=== PATIENT | male | born 1970 | race Caucasian/White ===

== ENCOUNTER 2023-01-10 08:57 | Emergency (ER) | payer OTHER, SELFPAY ==
[2023-01-10 09:04] VITALS: BP 167/114; PULSE 84; RESP 22; TEMP 36.4; O2SAT 97; BMI 32.4
--- NOTE | 2023-01-10 09:15 | PC.NURSE ---
pt is alert and oriented, skin pwd, respirations even and unlabored, ls clear, airway patent and speaking in full sentences, lower lip swollen since about [id number] not sure what caused it only had a small handful of Fritos, pt does not take lisnopril, states lip feels numb and burning, ns on the monitor
[2023-01-10] MEDS: methylPREDNISolone Sod Succ 125 MG/2 ML VIAL IVPUSH (09:31)
[2023-01-10] MEDS: Famotidine/PF 20 MG/2 ML VIAL IVPUSH (09:31)
[2023-01-10] MEDS: diphenhydrAMINE HCL 50 MG/ML VIAL IVPUSH (09:31)
--- NOTE | 2023-01-10 09:31 | ED_ITS ---
HPI - Allergic Reaction General Chief complaint: Allergic Reaction Stated complaint: numb face, possible allergic reaction Time Seen by Provider: 01/10/23 09:06 Source: patient Mode of arrival: ambulatory Limitations: no limitations History of Present Illness HPI narrative: 52 yo male with history of HTN, gout, currently being worked up for elevated eosinophils who presents to the ER for evaluation of acute onset of lower lip swelling and numbness that started 45 minutes prior to arrival. He states he woke up in his usual state of health. He had some Fritos for breakfast. Shortly after he developed swelling and numb sensation of the lower lip. He came right to the ER for evaluation. No history of similar episodes. No known allergies. He is not on lisinopril and does not take aspirin. He denies any tongue swelling, sensation of throat closing, upper lip swelling, wheezing or SOB. MD complaint: allergic reaction and facial swelling Onset (ago): minute(s) (45) Exposure: unknown Symptoms: lip swelling Severity: moderate Treatment prior to arrival: none Previous Allergic Reaction History: none Related Data Previous Rx's Medication Instructions Recorded diphenhydramine HCl 25 mg capsule 50 mg (2 x 25 mg) PO Q6H PRN 01/10/23 (Benadryl) allergic reaction #20 caps famotidine 40 mg tablet (Pepcid) 40 mg PO DAILY #7 tabs 01/10/23 prednisone 50 mg tablet 50 mg PO DAILY #3 tabs 01/10/23 Allergies Allergy/AdvReac Type Severity Reaction Status Date / Time No Known Allergies Allergy Verified 01/10/23 09:07 Review of Systems Review of Systems: Yes all other systems are reviewed and are negative [facility] Social History Social History Alcohol intake: current Alcohol intake frequency: a few times a week Smoked in Last 30 Days: No Use of substances other than those prescribed or required for medical reasons: No Advance Directives: No Physical Exam ED Vital Signs: Vital Signs - 24 hr 01/10/23 09:04 01/10/23 09:34 01/10/23 10:57 Temperature 97.6 F 97.7 F Pulse Rate 84 80 82 Respiratory Rate 22 H 20 20 Blood Pressure 167/114 H 147/93 H 147/97 H Pulse Oximetry 97 95 99 Oxygen Delivery Method Room Air Room Air Room Air BMI result Body Mass Index 32.4 Appearance: Alert. Oriented X3. Anxious Head: normocephalic, atraumatic. Eyes: Pupils equal, round and reactive to light. ENT: Lower lip with moderate generalized swelling, upper lip is normal. Pharynx normal, airway patent. No tonsillar swelling or exudate. Normal voice. No tongue swelling Neck: Normal inspection. Neck supple. No anterior neck swelling CVS: Normal heart rate and rhythm. Pulses normal. Respiratory: No respiratory distress. Breath sounds normal. Abdomen: Soft and nontender. +BS x4 Skin: Skin warm and dry. Normal skin color. Normal skin turgor. No rashes. Extremities: No lower extremity edema. No joint swelling. Neuro/psych: Oriented X 3. No motor deficit. No sensory deficit. CN II-XII intact. Normal speech and cognition. Course Reevaluation(s) Reevaluation #1: slight improvement in lower lip swelling, continues to report some tingling. airway patent. no difficulty swallowing or tongue swelling. got meds 45 mins ago. will continue to monitor and reassess Time: 10:30 Reevaluation #2: upon re-evaluation there is significant improvement in his lip swelling, near baseline. patient feels much better. unclear etiology of reaction. encouraged to f/u with vendor specialist and PCP strict return precautions discussed. stable for d/c home Time: 12:30 Medications Administered Discontinued Medications Generic Name Dose Route Start Last Admin Trade Name Jean Marieq PRN Reason Stop Dose Admin Diphenhydramine HCl 50 mg 01/10/23 09:18 01/10/23 09:31 Diphenhydramine Hcl 50 Mg/Ml Vial IVPUSH 01/10/23 09:19 50 mg ONCE ONE Administration Famotidine 20 mg 01/10/23 09:18 01/10/23 09:31 Famotidine/Pf 20 Mg/2 Ml Vial IVPUSH 01/10/23 09:19 20 mg ONCE ONE Administration Methylprednisolone Sodium Succinate 125 mg 01/10/23 09:18 01/10/23 09:31 Methylprednisolone Sod Succ 125 Mg/2 Ml Vial IVPUSH 01/10/23 09:19 125 mg ONCE ONE Administration Medical Decision Making Medical Decision Making MDM Narrative: 52 yo male with history of HTN (not on meds) and gout who presents with acute onset of isolated lower lip swelling that started this morning. No history of similar presentations. No airway involvement. IV established and IV medrol, pepcid and benadryl given. patient monitored closed in the ER for 3.5 hours. After several re-evaluations patient is almost back to baseline and feels much better after getting IV meds. At this time comfortable w/ discharge with close outpatient follow up and strict return precautions. Differential Diagnosis Differential Diagnoses: The differential diagnosis associated with the presentation includes angioedema, acute allergic reaction, trauma, insect bite Admission/Observation Consideration of admission/observation: Escalation of care including admission/observation considered Prescription Management I considered prescription management with: Other (benadryl, pepcid, prednisone) Chronic Conditions Patient?s care impacted by: Hypertension Critical Care Time Critical Care Time Critical Care Time: Yes Total Critical Care Time: 41 Attestation: I have personally provided critical care time exclusive of time spent on separately billable procedures. Time includes review of chart, frequent bedside reassessments of cardiopulmonary status, and monitoring for potential decompensation. Intervention performed as documented. Discharge Plan Discharge Clinical Impression: Angioedema Qualifiers: Encounter type: initial encounter Qualified Code(s): T78.3XXA - Angioneurotic edema, initial encounter Patient Disposition: Home, Self-Care Instructions: Angioedema (ED) Additional Instructions: recommend taking another dose of benadryl later this afternoon and then again before bed start the prednisone and pepcid tomorrow and take as directed If you develop new or worsening symptoms call 911 or come back to the ER for further evaluation. recommend following up with an insurance claim auditor w[facility] at [address] [place] [address] Prescriptions: New diphenhydramine HCl [Benadryl] 25 mg capsule 50 mg PO Q6H PRN (Reason: allergic reaction) Qty: 20 0RF prednisone 50 mg tablet 50 mg PO DAILY Qty: 3 0RF famotidine [Pepcid] 40 mg tablet 40 mg PO DAILY Qty: 7 0RF
[2023-01-10 09:34] VITALS: BP 147/93; PULSE 80; RESP 20; O2SAT 95
--- NOTE | 2023-01-10 10:56 | PC.NURSE ---
pt's lower lip swelling appears to be improving
[2023-01-10 10:57] VITALS: BP 147/97; PULSE 82; RESP 20; TEMP 36.5; O2SAT 99
== END 2023-01-10 13:05 | disposition home or self-care (01) ==
PROVIDERS: Emergency Provider Emergency Medicine; PCP Nurse Practitioner Family
DX: T78.3XXA Angioneurotic edema, initial encounter (principal); X58.XXXA Exposure to other specified factors, initial encounter; I10 Essential (primary) hypertension
CPT/HCPCS: 96374; 96375; 99284; J1200; J2930

== ENCOUNTER 2023-05-21 11:47 | Outpatient (AMB) | payer OTHER, SELFPAY ==
[2023-05-21 11:54] VITALS: BP 120/80; PULSE 96; TEMP 36.2; O2SAT 96; BMI 31.9
--- NOTE | 2023-05-21 11:54 | AM.OFFWIN_ITS ---
Intake Vital Signs 05/21/23 11:54 Height 5 ft 10 in Weight 222 lb BMI 31.9 BP 120/80 Blood Pressure Location Lt brachial Position Sitting Pulse 96 Pulse Source Pulse Oximeter Temp 97.1 F Temp Source Temporal Artery Scan Pulse Oximetry (%) 96 Oxygen Delivery Method Room Air Intake Visit Reasons: EP Lf eye irr,ringing ear, throat [phone] Intake Note: pt is here today for lft eye ear ringing throat started saturday Patient Tobacco Use Status: Never used Tobacco Allergies No Known Allergies Allergy (Verified 05/21/23 11:56) Medication List - Last Reconciled 05/21/23 by OMAR Price sulfacetamide sodium 10% 2 drps ophthalmic (eye) Q4H 5 days Do you need a note to return to daycare/school/sports/work: No HPI HPI Comments History of Present Illness Details 53-year-old male presents today complain ing of fever nasal congestion mild cough x3 days. Said fever was over 101 degrees at home PFSH Social History Alcohol intake: current Alcohol intake frequency: a few times a week Patient Tobacco Use Status: Never used Tobacco Review of Systems Const Reports body aches, Reports chills, Reports fatigue, Reports fever(s), Reports headache(s) and Reports weakness ENT Reports headache(s), Reports hearing loss, Reports nasal congestion, Reports nasal discharge, Reports sinus pain, Reports sinus pressure and Reports sore throat Resp Reports chest congestion and Reports cough Musc Reports myalgias Neuro Reports headache(s) and Reports weakness Endo Reports fatigue Physical Exam Vital Signs: Last Vital Signs Temp 97.1 F 05/21/23 11:54 Pulse 96 05/21/23 11:54 BP 120/80 05/21/23 11:54 Pulse Ox 96 05/21/23 11:54 Oxygen Delivery Method Room Air 05/21/23 11:54 BMI result Body Mass Index 31.9 HEENT Head: Yes normal to inspection, Yes normocephalic and Yes atraumatic Ears: hearing grossly normal bilaterally, external ears normal and TM's normal bilaterally General nose exam: Normal external nose present Face and sinus: Yes normal facial exam Mouth: Normal oral and palatal mucosa present Teeth and gingiva: dentition normal Throat: Yes posterior oropharynx normal Eyes Conjunctivae: conjunctival abnormal left conjunctival injection and discharge Resp Effort & Inspection: normal respiratory effort Auscultation: clear to auscultation bilaterally Cardio Rate: regular rate Rhythm: regular rhythm Heart sounds: S1 normal heart sound present and S2 normal heart sound present Results AMB Rapid Strep AMB Rapid Strep Negative Last Edit by Almas Kamara CMA on 05/21/23 12 :18 Assessment & Plan Assessment & Plan (1) Upper respiratory infection: Code(s): J06.9 - Acute upper respiratory infection, unspecified (2) Conjunctivitis: Code(s): H10.9 - Unspecified conjunctivitis Plan: The patient will use sulfacetamide drops for conjunctivitis on the left, I will await the results of COVID flu test tomorrow. 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 Follow-up with PCP Plan See plan Orders: Orders 2 AMB Rapid Strep Screen Today Z13.9 - Encounter for screening, unspecified SARS-CoV2/FLU/RSV Today J06.9 - Acute upper respiratory infection, unspecified Medications: New sulfacetamide sodium 10% 2 drps ophthalmic (eye) Q4H 5 days 15 mL 0RF Coding Level of Care Code Est Pt Level 3 (52149) Diagnoses Upper respiratory infection J06.9 Conjunctivitis H10.9 Time Spent (min) 20
== END 2023-05-21 12:31 | disposition home or self-care (01) ==
PROVIDERS: PCP Nurse Practitioner Family; Visit Provider Physician Assistant Medical
DX: J06.9 Acute upper respiratory infection, unspecified (principal); H10.9 Unspecified conjunctivitis
CPT/HCPCS: 87880; 99213

== ENCOUNTER 2023-05-21 16:48 | Outpatient (REF) | payer OTHER, SELFPAY ==
[2023-05-21 18:12] LABS: Influenza A PCR NEGATIVE (Negative); Influenza B PCR NEGATIVE (Negative); Resp Syncy Virus RNA Qual PCR NEGATIVE (Negative); SARS COV2 PCR INHOUSE POSITIVE (Negative)
== END 2023-05-21 16:49 | disposition home or self-care (01) ==
LOC: HO.LNP 16:48
PROVIDERS: Visit Provider Physician Assistant Medical
DX: Z11.52 Encounter for screening for COVID-19 (principal); Z20.822 Contact with and (suspected) exposure to COVID-19; J06.9 Acute upper respiratory infection, unspecified
CPT/HCPCS: 0241U

== ENCOUNTER 2024-04-14 02:52 | Emergency (ER) | payer OTHER, SELFPAY ==
--- NOTE | ~2024-04-14 | XR_ITS ---
CLINICAL HISTORY: cough 2 view chest x-ray. Comparison: CR - RIBS LEFT PA CHEST [id number] - 03/04/19 16:05 EST Findings: The lungs are adequately expanded. No focal consolidation. No effusion or pneumothorax. Cardiac and mediastinal contours are within normal limits. No acute osseous abnormality Impression: No acute process. This document has been electronically signed by: John Howell MD on 04/14/2024 07:55:32
--- OUTSIDE RECORDS SUMMARY | 2024-04-14 02:55 | XMS_ITS ---
[facility] Organization [facility] Address [address] [place] [address] Care Team Providers Care Breastfeeding Program Coordinator Name Role Phone Naida Lilly Primary Care Provider Unavaila nahomy Gaytan Venus Unavailable [phone] Huang Shore Unavailable [phone] Allergies No Known Allergies REASON FOR VISIT Foot pain Medications Medication SIG (Take, Route, Frequency, Duration) Notes Start Date End Date Status Allopurinol 100 MG 1 tablet Orally Once a day for 30 day(s) Active Acetaminophen 500 MG TAKE ONE TABLET BY MOUTH THREE TIMES A DAY Oral for 30 Not-Taking Cephalexin 500 MG 1 capsule Orally brenda ry 6 hrs for 5 day(s) Not-Taking Atorvastatin Calcium 20 MG 1 tablet Oral ly Once a day for 30 day(s) Not-Taking Social History Tobacco Use: Social History Observation Description Date Details (start date - stop date) Never Smoker NA - NA Tobacco Use/Smoking Question Answer Notes Are you a: nonsmoker Additional Findings: Tobacco Non-User Current no n-smoker Alcohol Screen Question Answer Notes Did you have a drink contain ing alcohol in the past year? Yes How often did you have a dri nk containing alcohol in the past year? 2 to 3 times a week (3 points) Points 3 Interpretation Negative Tobacco use other than smoking: Question Answer Notes Are you an other tobacco user? No Vital Signs Height 5ft 10in in 12/24/2023 Weight 212 lbs 12/24/2023 BMI 30.42 kg/m2 12/24/2023 Encounters Encounter Location Date Provider Diagnosis [facility] [address] [place] [id number] 12/24/2023 Huang Shore Achilles tendinitis of right lower extremity M76.61 ; Sprain of deltoid ligament of right ankle, initial encounter S93.421A and Partial tear of right Achilles tendon, initial encounter S86.011A Assessments Encounter Date Diagnosis (ICD Code) Assessment Notes Treatment Notes Treatment Clinical Notes Section Notes 12/24/2023 Achilles tendinitis of right lower extremity (ICD-10 - M76.61) 12/24/2023 Sprain of deltoid ligament of right ankle, initial encounter (ICD-10 - S93.421A) 12/24/2023 Partial tear of right Achilles tendon, initial encounter (ICD-10 - S86.011A) Plan Of Treatment Pending Test Test Name Order Date X ray : Foot, right 3V 12/24/2023 Next Appt Details Follow Up: prn, Reason: Progress Notes * Kranthi KRAMERDOB:[birth year] (53 yo M)Acc No.[id number]:12/24/2023 Progress Note Patient:?Kranthi Kramer Provider:?Huang Shore DPM :1970???Age:53 Y???Sex:Male Andrzej e:12/24/2023 Address:[address] [place] [address] Pcp:Naida Lilly Subjective: * Chief Complaints: * ???Foot pain * HPI: ???Foot Pain:?Nature:?sharp, swelling, tenderness.?Location?Right achilles.?Duration:?several months.?Onset/Cause:?pt stepped in whole.?Course:?worse.?Aggrevated:?any pressure, standing, walking.?Treatments:?rest, ice.?Quality/Severity?severe--pt is concerned he may have torn his achilles; he relates sx repair of left achilles [address] So.? * ROS:?General/Constitutional:?Nausea?denies, denies.?Vomiting?denies, denies.?Hunger Thirst?denies, denies.?Loss appetite?denies, denies.?Chills?denies, denies.?Fatigue?denies, denies.?Fever?denies, denies.?Night Sweats denies, denies.?Unexplained weight loss?denies, denies.?Unexplained weight gain?denies.?Ophthalmologic:?Blurred vision?denies.?Red eye?denies.?HEENTM:?Dentures?denies, denies.?Dizziness?denies, denies.?Glasses/contacts?denies, denies.?Retinopathy?denies, denies.?Blurred/double vision?denies, denies.?TMJ?denies, denies.?Discharge/drainage?denies, denies.?Implants?denies, denies.?Sore throat?denies.?Dental implants?denies.?Hard of hearing ?denies, denies.?Difficulty chewing/swallowing/speaking?denies, denies.?Nose bleeds?denies, denies.?Sore mouth?denies, denies.?Swollen glands?denies.?Respiratory:?On Oxygen?denies, denies.?Pneumonia/pleurisy?denies, denies.?Bronchitis?denies, denies.?Emphysema?denies, denies.?Coughing?denies, denies.?Cough blood?denies, denies.?Shortness of breath?denies, denies.?Wheezing?denies, denies.?Cardiovascular:?Pacemaker?denies, denies.?MVP?denies, denies.?WPW?denies, denies.?CHF?denies, denies.?Heart attack?denies, denies.?Septal defect?denies, denies.?Rapid beat?denies, denies.?Chest pain ?denies, denies.?Atrial Fib.?denies, denies.?Murmur/Palpitations?denies, denies.?Gastrointestinal:?Hemorrhoids?denies, denies.?Stomach/Abdominal pain?denies, denies.?Dark blood stool?denies, denies.?Irritable bowel ?denies, denies.?Constipation?denies, denies.?Diarrhea?denies, denies.?Vomiting?denies.?Hematology:?Swelling?denies, denies.?Clots?denies.?Varicose Veins?denies.?Bruising?denies, denies.?Bleeding problem?denies, denies.?Genitourinary:?Blood urine?denies, denies.?Frequent/Painfu/urination/bladder control?denies, denies.?Kidney stones?denies, denies.?Infection (UTI)?denies, denies.?Nephropathy?denies, denies.?sex trans dis (STD)?denies.?Prostate?denies.?Musculoskeletal:?Hammertoes?denies, denies.?Bunions?denies, denies.?Scoliosis/kyphosis?denies.?Back Pain?denies.?Muscle Cramps/ Resting?denies.?Muscle cramps / walking?denies, denies.?Generalized aches and pains?denies, denies.?Weakness?denies, denies.?Integ.:?Greene?denies, denies.?Scars?denies, denies.?Corns/calluses?denies, denies.?Ingrown nails?admits, denies.?Painful nails?denies, denies.?Open Sores?denies.?Rashes?denies, denies.?Neurologic:?Difficulty sleeping?denies, denies.?Bipolar?denies.?Brain disorder?denies, denies.?Numbness?denies.?Balance trouble?denies, denies.?Confusion?denies, denies.?Fainting/blackouts?denies, denies.?Headache?denies.?Tingling?denies.?Tremors?denies, denies.? * Medical History:? * Surgical History:?achilles t endon repair 05/2000back surgery- L2-L3 & L4- L5 03/30/2011 -S1 nee arthroscopy 08/1985hernia drenal gland 2014rotator cuff tear repair 05/2023knee surgery 03/2023 * Hospitalization/Major Diagno stic Procedure:?No Hospitalization History. * Family History:?Mother: dece ased, Cancer, diagnosed with Unspecified essential hypertension, Other malignant neoplasm of unspecified site.?Father: , cancer, diagnosed with Other malignant neoplasm of unspecified site.? * Social History:?Tobacco Use:?Tobacco Use/Smoking?Are you a:?nonsmoker ?Additional Findings: Tobacco Non-User?Current non-smoker ?Tobacco use other than smoking?Are you an other tobacco user??No ???Drugs/Alcohol:?Drugs?Have you used drugs other than those for medical reasons in the past 12 months??Yes ?Alcohol Screen?Did you have a drink containing alcohol in the past year??Yes ?How often did you have a drink containing alcohol in the past year??2 to 3 times a week (3 points) ?Points?3 ?Interpretation?Negative ???Miscellaneous:?Caffeine: yes, 1-2 cups per day. ?Exercise: yes, golf. ?Marital status: . ?Occupation: nPicker. * Medications:?TakingAllopurin ol 100 MG Tablet 1 tablet Orally Once a dayTaking Allopurinol 100 MG Tablet 1 tablet Orally Once a dayNot-Taking/PRNAcetaminophen 500 MG Tablet TAKE ONE TABLET BY MOUTH THREE TIMES A DAY Oral Atorvastatin Calcium 20 MG Tablet 1 tablet Orally Once a dayCephalexin 500 MG Capsule 1 capsule Orally every 6 hrsMedication List reviewed and reconciled with the patientNot-Taking/PRN Acetaminophen 500 MG Tablet TAKE ONE TABLET BY MOUTH THREE TIMES A DAY Oral Not-Taking/PRN Atorvastatin Calcium 20 MG Tablet 1 tablet Orally Once a dayNot-Taking/PRN Cephalexin 500 MG Capsule 1 capsule Orally every 6 hrsMedication List reviewed and reconciled with the patient * Allergies:?N.K.D.A.yes[Aller gies Verified] Objective: * Vitals:?Ht: 5ft 10in, Wt:212 , BMI:30.42, Shoe size: 12, Ht-cm: 177.8 cm, Wt-k.16 kg. * Examination: ???General Examination: ?GENERAL APPEARANCE:?pleasant, alert, well nourished, well developed, well hydrated, with good attention to hygene/body habitus, and in no acute distress.?ORIENTED:?person,place, and time.?Neurological: ?SENSORY:?Neurological exam is normal, pain sensation normal, vibration sensation intact, pinprick sensation is normal in the lower extremities, denies, tingling, burning, anesthesia, paresthesia, hyperesthesia, B/L, Neurological exam demonstrates pop right achilles tendon and pain on df right foot thru achilles with fbirous swelling enlargement nilam achilles tendons.?TINEL'S COMPRESSION:?Negative tarsal tunnel, cleveland pedis, and medial calcaneal nerves B/L.?BABINSKI REFLEX:?absent.?Neuroma Pain: ?PALPATION:?No interspace pain noted on palpation.?Vascular: ?DP PULSES(B):?2/4, B/L.?PT PULSES(B):?2/4, B/L.?CAPILLARY FILL TIME:?3 secs. per digit, B/L.?TROPHIC CONDITION-TEXTURE/ELASTICITY/TURGOR/HAIR GROWTH(B):?normal, B/L.?TEMPERTURE GRADIENT(C):?warm to cool, proximal to distal, B/L.?PIGMENTATION:?normal, B/L.?EDEMA(C):? 1/4, Right lower leg.?TELANGECTASIA:?absent.?VARICOSITIES:?absent.?Dermatologic: ?SKIN FINDINGS:?Skin exam reveals normal texture, elasticity, and tugor. There are no masses. The interspaces are clear, B/L .?Orthopedic: ?MUSCLE STRENGTH:?5/5 all groups in a symmetrical fashion , B/L.?GAIT ABNORMALITY:?pronated, abducted, B/L.?X-Rays - IMAGING REPORT: ?Clinical Indication(s):? Evaluate for Fracture.?Views:? 3 views of Ankle, RIGHT.?Findings:? asymmetrical Ankle joint space narrowing, medial gutter with increased soft tissue density posterior ankle.?Fracture:? Negative fractures identified.? Assessment: * Assessment: 1.?Sprain of deltoid ligamen t of right ankle, initial encounter - S93.421A?2.?Achilles tendinitis of right lower extremity - M76.61 (Primary)?3.?Partial tear of right Achilles tendon, initial encounter - S86.011A? Plan: * Treatment: * Procedure Codes:?79073 X-RAY EXAM OF RIGHT FOOT 3V, Modifiers: 26 , RT * Preventive Medicine:? ??Counseling:?Discussion:?-14: Office or other outpatient visit for the evaluation and management of an established patient, which required a medically appropriate history and/or examination and MODERATE level of DECISION MAKING for: 1 OR MORE CHRONIC PROBLEM(S) THATS WORSENING, 2 STABLE CHRONIC PROBLEMS, A NEWLY DIAGNOSED PROBLEM WITH UNCERTAIN PROGNOSIS, AN ACUTE COMPLICATED INJURY WITH MULTIPLE TREATMENT OPTIONS, OR AN ACUTE PROBLEM WITH ACCOMPANYING SYSTEMIC SYMPTOMS, THAT POSE(S) A MODERATE RISK OF MORBIDITY. THIS CONDITION MAY ALSO INCLUDE RX DRUG MANAGEMENT, OR A DECISON FOR MINOR SURGERY. The visit on the day of the encounter encompassed interpreting the data and educating the patient as to the nature of their condition, treatment options available according to their individual PMH, meds, allergies, and overall health/living conditions, as well as any potential risks or complications that may occur from a failure to adhere to, and participate in, the recommended course of therapy. The discussion included a complete verbal, and/or written explanation of the examination results, any x-rays taken, the proposed diagnosis, and outline of the treatment plan. A schedule for future care needs was also explained. The patient verbalized an understanding of the instructions at this time and agreed to be an active participant in their treatment. If the patient should think of any questions or concerns after the visit, I have encouraged the patient to call the office.?Consult:?The patient was counseled on the diagnosis, treatment options, and the need for a, MRI to evaluate for partial tear right achilles tendon, The patient was counseled on the diagnosis, treatment options, and the need for a, Orthopedic Consult for potential surgical repair of achilles tendon right--pt to call [facility] for appt.? * Follow Up:?prn * Images: * Sign off status: Completed true * Provider:?Huang Shore DPM Date:? 024 Generated for Candie patel/Caity/Gailitting on:?04/14/2024 02:55 AM EST History and Physical Notes * HPI (History of Present Illness) Category Sub-Category Detail Notes Category Not es Foot Pain Aggrevated: any pressure, standing, walk ing Onset/Cause: pt stepped in whole Course: worse Duration: several months Nature: sharp, swelling, ten derness Treatments: rest, ice Quality/Severity severe--pt is concer martin he may have torn his achilles; he relates sx repair of left achilles [address] So Location Right achilles Examination Category Sub-Category Detail Notes Category Not es Neuroma Pain PALPATION: No interspace pain noted on palpation Neurological SENSORY: Neurological exa m is normal, pain sensation normal, vibration sensation intact, pinprick sensation is normal in the lower extremities, denies, tingling, burning, anesthesia, paresthesia, hyperesthesia, B/L, Neurological exam demonstrates pop right achilles tendon and pain on df right foot thru achilles with fbirous swelling enlargement nilam achilles tendons BABINSKI REFLEX: absent TINEL'S COMPRESSION: Negative tarsal demetrice jose alfredo, cleveland pedis, and medial calcaneal nerves B/L Dermatologic SKIN FINDINGS: Skin exam reveal s normal texture, elasticity, and tugor. There are no masses. The interspaces are clear, B/L Orthopedic GAIT ABNORMALITY: pronated, abducted, B/L MUSCLE STRENGTH: 5/5 all groups in a symmetrical fashion , B/L General Examination GENERAL APPEARANCE: pleasant , alert, well nourished, well developed, well hydrated, with good attention to hygene/body habitus, and in no acute distress ORIENTED: person,place, and ti me Vascular DP PULSES (B): 2/4, B/L PT PULSES (B): 2/4, B/L CAPILLARY FILL TIME: 3 secs. per digit, B/L TEMPERTURE GRADIENT (C): warm to cool, p roximal to distal, B/L TROPHIC CONDITION-TEXTURE/ELASTICITY/TURGOR/HAIR GROWTH (B): normal, B/L EDEMA (C): 1/4, Right lower leg TELANGECTASIA: absent VARICOSITIES: absent PIGMENTATION: normal, B/L X-Rays - IMAGING REPORT Findings: asymmetr ical Ankle joint space narrowing, medial gutter with increased soft tissue density posterior ankle Fracture: Negative fractures i dentified Views: 3 views of Ankle, RI GHT Clinical Indication(s): Evaluate for Fra cture
--- OUTSIDE RECORDS SUMMARY | 2024-04-14 02:55 | XMS_ITS ---
Author Organization [facility] Address [address] [place] [address] Care Team Providers Care Asphalt Paving Machine Operator Name Role Phone Naida Lilly Primary Care Provider Unavaila nahomy Gaytan, Venus Unavailable [phone] REASON FOR VISIT [facility] MRI Encounters Encounter Location Date Provider Diagnosis [facility] [address] [address] 12/24/2023 Venus Gaytan Plan Of Treatment No Information Progress Notes * Kranthi JACKDOB:[birth year] (53 yo M)Acc No.[id number]:12/24/2023 Patient:?Kranthi Jack :1970???Age:53 Y???Sex:Male [facility] [place] [address] * true * Date:? Generated for Chicoi jorge/Caity/eTransmitting on:?04/14/2024 02:55 AM EST
--- OUTSIDE RECORDS SUMMARY | 2024-04-14 02:56 | XMS_ITS | Patient Health Record ---
Author Organization [facility] Address [address] [place] [address] Care Team Providers Care Medical Care Manager Name Role Phone Naida Lilly Primary Care Provider Unavaila Dalton Elliottmie Unavailable [phone] Huang Shore Unavailable [phone] Ruben Quintanilla Unavailable [phone] Allergies No Known Allergies Reason For Referral No Information Medications Medication SIG (Take, Route, Frequency, Duration) Notes Start Date End Date Status Atorvastatin Calcium 20 MG 1 tablet Oral ly Once a day for 30 day(s) Not-Taking Cephalexin 500 MG 1 capsule Orally brenda ry 6 hrs for 5 day(s) Not-Taking Acetaminophen 500 MG TAKE ONE TABLET BY MOUTH THREE TIMES A DAY Oral for 30 Not-Taking Allopurinol 100 MG 1 tablet Orally Once a day for 30 day(s) Active Immunizations Vaccine Route Administration Date Status Comme nts COVID-19 [employer] Unknown 02/02/2022 R efused Social History Tobacco Use: Social History Observation [...] Are you an other tobacco user? No Problems Problem Type SNOMED Code ICD Code Onset Dates Problem Status W/U Status Risk Notes Problem Osteoarthritis of midtarsal joint of left foot ([id number] ) Osteoarthritis of midtarsal joint of left foot (M19.072) Active confirmed Vital Signs Height 5ft 10in in 01/10/2024 Weight 212 lbs 01/10/2024 BMI 30.42 kg/m2 01/10/2024 Encounters Encounter Location Date Provider Diagnosis [address] [address] 10/30/2023 Ruben Dwight Pain in left foot M79.672 ; Pain in left ankle and joints of left foot M25.572 ; Bursitis of left foot M77.52 and 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 [address] 12/24/2023 Huang Shore Achilles tendinitis of right lower extremity M76.61 ; Sprain of deltoid ligament of right ankle, initial encounter S93.421A and Partial tear of right Achilles tendon, initial encounter S86.011A [address] [address] 01/10/2024 Huang Shore Pain in right foot M79.671 and Achilles tendinosis M67.[address] [address] 10/30/[address] [address] 12/23/[address] [address] 12/24/2023 Venusalcon Gaytan Assessments Encounter Date Diagnosis (ICD Code) Assessment Notes Treatment Notes Treatment Clinical Notes Section Notes 10/30/2023 Pain in left ankle and joints of left foot (ICD-10 - M25.572) 10/30/2023 Pain in left foot (ICD-10 - M79.672) 12/24/2023 Sprain of deltoid ligament of right ankle, initial encounter (ICD-10 - S93.421A) 12/24/2023 Achilles tendinitis of right lower extremity (ICD-10 - M76.61) 01/10/2024 Pain in right foot (ICD-10 - M79.671) 01/10/2024 Achilles tendinosis (ICD-10 - M67.88) 12/24/2023 Partial tear of right Achilles tendon, initial encounter (ICD-10 - S86.011A) 10/30/2023 Bursitis of left foot (ICD-10 - M77.52) 10/30/2023 Osteoarthritis of midtarsal joint of left foot (ICD-10 - M19.072) Plan Of Treatment Pending Test Test Name Order Date MRI : Ankle, right 11/05/2017 *Uric Acid, Serum 05/12/2012 *Uric Acid, Serum 11/08/2017 *Sedimentation Rate-Westergren 8 *Sedimentation Rate-Westergren 3 X ray : Foot, left 3V 03/03/2012 X ray : Foot, left 3V 10/30/2023 X ray : Foot, right 3V 12/24/2023 11340 I&D ABSCESS- SIMPLE,SINGLE 022 Insurance Providers Payer Name Payer Address Payer Phone Subscriber Number Group Number Insured Name Patient Relationship to Insured Coverage Start Date Coverage End Date [facility] [address] [place] [address] [id number] Carrol Kramer Spouse - patient is the spouse of the insured Medical (General) History Medical History History ICD Code back, hip, knee pain high blood pressure sciatica Gout CAD Surgical History Surgery Date(Month/Year) achilles tendon repair 05/2000 back surgery- L2-L3 & L4- L5 03/30/2011 -S1 11/30 knee arthroscopy 08/1985 hernia 07/2009 adrenal gland 2014 rotator cuff tear repair 05/2023 knee surgery 03/2023
[2024-04-14 03:06] VITALS: BP 149/105; PULSE 96; RESP 20; TEMP 36.4; O2SAT 99; BMI 31.0
[2024-04-14 03:39] LABS: MANUAL DIFF FLAG NO
[2024-04-14 03:40] LABS: Basophils Absolute Auto 0.1 X10*3/uL (0.0-0.2); Basophils Percent Auto 0.6 % (0-2); Eosinophils Absolute Auto 0.3 X10*3/uL (0.0-0.4); Hematocrit 39.3 % (42.0-52.0); Hemoglobin 13.2 g/dl (14.0-18.0); Imm Gran Abs Auto 0.11 X10*3/uL (0.00-0.03); Imm Gran Pct Auto 1.2 % (0.0-0.4); Lymphocytes Absolute Auto 2.8 X10*3/uL (1.2-4.9); Lymphocytes Percent Auto 30.7 % (20-40); Mean Corpuscular HGB Conc 33.6 g/dl (31.0-36.0); Mean Corpuscular Volume 80.5 fL (80.0-98.0); Mean Platelet Volume 7.9 fL (9.4-12.4); Monocytes Absolute Auto 0.6 X10*3/uL (0.1-1.2); Monocytes Percent Auto 6.9 % (2-11); Neutrophils Absolute Auto 5.2 x10*3/uL (2.0-8.3); Neutrophils Percent Auto 57.6 % (45-73); Platelet Count 436 X10*3/uL (160-400); Red Blood Count 4.88 X10*6/uL (4.60-5.80); Red Cell Distribution Width 13.6 % (11.0-16.0)
[2024-04-14 03:59] LABS: Alanine Aminotransferase 28 U/L (0-40); Albumin Level 4.1 g/dL (3.5-5.0); Alkaline Phosphatase 86 U/L (39-117); Anion Gap 14 (12-20); Aspartate Amino Transferase 23 U/L (5-37); Bilirubin Total 0.2 mg/dL (0.0-1.0); Blood Urea Nitrogen 15 mg/dL (9-16); Calcium 9.3 mg/dL (8.4-10.2); Carbon Dioxide 23 mmol/L (22-29); Chloride 106 mmol/L (96-108); Creatinine Clr Calc Pharmacy 106.4; Estimated Glomerular Filt Rate > 60; Glucose Random 93 mg/dL (60-115); Potassium 4.2 mmol/L (3.3-5.1); Sodium 139 mmol/L (135-145); Total Protein 7.5 g/dL (6.5-8.0)
[2024-04-14 04:20] LABS: Influenza A PCR POSITIVE (Negative); Influenza B PCR NEGATIVE (Negative); Resp Syncy Virus RNA Qual PCR NEGATIVE (Negative); SARS COV2 PCR INHOUSE NEGATIVE (Negative)
--- NOTE | 2024-04-14 07:21 | ED.GENADULT ---
HPI - General Adult General Chief complaint: General Medical Stated complaint: coughing up parasite? Time Seen by Provider: 04/14/24 07:07 Source: patient Mode of arrival: ambulatory Limitations: no limitations History of Present Illness ED Provider: DR. Davis HPI narrative: A 54-year-old male came in for evaluation of 3 weeks of shortness of breath, generalized body ache, fever, coughing with white phlegm coming out, patient saying he may be coughing up parasites, no hemoptysis, no recent travel, no recent use of antibiotic patient had similar episode in 2021 was claiming that he is coughing up parasitic expectorant, patient did not follow-up or clearance by his PCP about the patient felt better and improved until few weeks ago when he started to have the flu-like symptoms. Related Data Previous Rx's ?Medication ?Instructions ?Recorded sulfacetamide sodium 10 % eye drops 2 drp ophthalmic (eye) Q4H 5 days 05/21/23 #15 mL Allergies Allergy/AdvReac Type Severity Reaction Status Date / Time No Known Allergies Allergy Verified 04/14/24 03:14 Review of Systems Review of Systems: All other systems are reviewed and are negative Constitutional: Reports as per HPI and Reports no additional constitutional complaints Eyes: Reports as per HPI and Reports no additional eye complaints Reports system reviewed and no additional complaints, except as documented Cardiovascular: Reports as per HPI and Reports no additional cardiovascular complaints Respiratory: Reports as per HPI and Reports no additional respiratory complaints Gastrointestinal: Reports as per HPI and Reports no additional gastrointestinal complaints Genitourinary: Reports no additional female genitourinary complaints Musculoskeletal: Reports no additional musculoskeletal complaints Skin/Breast: Reports system reviewed and no additional complaints, except as docu Psychiatric: Reports no additional psychiatric complaints Endocrine: Reports no additional endocrine complaints Hematologic/Lymphatic: Reports no additional hematologic/lymphatic complaints Allergic/Immunologic: Reports no additional allergic/immunologic complaints Reports system reviewed and no additional complaints, except as documented and Reports Abnormal speech present [facility] Social History Social History Alcohol intake: current Alcohol intake frequency: a few times a week Patient Tobacco Use Status: Never used Tobacco Advance Directives: No Advance Directives Information Provided: Yes Physical Exam ED Vital Signs: Vital Signs - 24 hr 04/14/24 03:06 Temperature 97.6 F Pulse Rate 96 Respiratory Rate 20 Blood Pressure 149/105 H Pulse Oximetry 99 Oxygen Delivery Method Room Air BMI result Body Mass Index 31.0 Vital signs have been reviewed and appear to be correct. Blood pressure elevated. Heart rate normal. Respiratory rate normal. Temperature normal. Oxygen saturation normal. Appearance: Alert. Oriented X3. No acute distress. Head: Normal external exam. Normocephalic. Atraumatic. No Hamilton signs noted. No raccoon eyes noted Eyes: PERRLA. EOMI. Conjunctiva and sclera normal. Eyelids normal. ENT: TM's Normal. Pharynx normal. Uvula midline. Moist mucous membranes. No trismus noted. No drooling noted. No muffled voice noted. Neck: Normal inspection. Neck supple. FROM. No adenopathy. Thyroid Normal. No meningeal signs. No neck mass noted. CVS: Normal heart rate and rhythm. Heart sound normal. No murmurs noted. Pulses normal throughout. Respiratory: No respiratory distress. Painless inspiration. Breath sounds normal. No wheezes/rales/rhonchi noted. Chest nontender. No accessory muscle usage noted or decreased air movement noted. Abdomen: Soft and nontender. Bowel sounds normal in all 4 quadrants. No distention noted. No organomegaly noted. No visible injury noted. Back: No CVA tenderness. Full range of motion noted. Skin: Skin warm and dry. Normal skin color. Normal skin turgor. No rashes/lesions/lacerations noted. Extremities: No lower extremity edema. Extremities exhibit normal range of motion. Extremities nontender. Neuro: Oriented X 3. Cranial nerve exam: II-XII are grossly intact No motor deficit. No sensory deficit. Reflexes normal. Course Reevaluation(s) Reevaluation #1: 54-year-old male with flu-like symptoms and coughing think he has a parasitic lung disease patient is positive for flu, chest x-ray is unremarkable, O2 sat is 99% appear stable in the absence of other comorbidity and recent travel or exposure to another parasitic disease,, patient also declined any immunocompromise comorbidity. Will reassure the patient, continue supportive management of influenza and follow-up with electronic scale subassembler for further evaluation of parasitic lung disease. Patient agreed on the plan. Time: 07:27 Medical Decision Making Differential Diagnosis Differential Diagnoses: The differential diagnosis associated with the presentation includes (Pneumonia, pneumothorax, pleural effusion, influenza, RSV, COVID-19 infection, electrolyte derangement, severe anemia.) Admission/Observation Consideration of admission/observation: Escalation of care including admission/observation considered Lab Data MDM Lab Attestation statement: I reviewed the patient's lab results. 04/14/24 03:35 04/14/24 03:35 Labs: Lab Results 04/14/24 Range/Units 03:35 WBC 9.0 (4.8-10.8) X10*3/uL RBC 4.88 (4.60-5.80) X10*6/uL Hgb 13.2 L (14.0-18.0) g/dl Hct 39.3 L (42.0-52.0) % MCV 80.5 (80.0-98.0) fL MCH 27.0 (27.0-33.0) pg MCHC 33.6 (31.0-36.0) g/dl RDW 13.6 (11.0-16.0) % Plt Count 436 H (160-400) X10*3/uL MPV 7.9 L (9.4-12.4) fL Immature Gran % (Auto) 1.2 H (0.0-0.4) % Neut % (Auto) 57.6 (45-73) % Lymph % (Auto) 30.7 (20-40) % Garrard % (Auto) 6.9 (2-11) % Eos % (Auto) 3.0 (0-4) % Baso % (Auto) 0.6 (0-2) % Lymph # (Auto) 2.8 (1.2-4.9) X10*3/uL Garrard # (Auto) 0.6 (0.1-1.2) X10*3/uL Eos # (Auto) 0.3 (0.0-0.4) X10*3/uL Baso # (Auto) 0.1 (0.0-0.2) X10*3/uL Abs Immat Gran (auto) 0.11 H (0.00-0.03) X10*3/uL Absolute Neuts (auto) 5.2 (2.0-8.3) x10*3/uL Absolute Nucleated RBC 0.000 (0.0-0.012) X10*3/uL Nucleated RBC % (auto) 0.0 (0.0-0.2) /100WBC Sodium 139 (135-145) mmol/L Potassium 4.2 (3.3-5.1) mmol/L Chloride 106 (96-108) mmol/L Carbon Dioxide 23 (22-29) mmol/L Anion Gap 14 (12-20) BUN 15 (9-16) mg/dL Creatinine 0.91 (0.5-1.4) mg/dL Estim Creat Clear Calc 106.4 Estimated GFR > 60 Random Glucose 93 (60-115) mg/dL Calcium 9.3 (8.4-10.2) mg/dL Total Bilirubin 0.2 (0.0-1.0) mg/dL AST 23 (5-37) U/L ALT 28 (0-40) U/L Alkaline Phosphatase 86 (39-117) U/L Total Protein 7.5 (6.5-8.0) g/dL Albumin 4.1 (3.5-5.0) g/dL Influenza Type A (PCR) POSITIVE A (Negative) Influenza Type B (PCR) NEGATIVE (Negative) RSV RNA Qual (PCR) NEGATIVE (Negative) SARS-CoV-2 RNA (RT-PCR) NEGATIVE (Negative) Independent Interpretation I performed an independent interpretation of an: Plain X-Ray (Chest: No acute intrathoracic pathology.) Radiology Impression Discussion of test interpretation with radiology: I have reviewed the radiologist's reading. Discharge Plan Discharge Clinical Impression: Upper respiratory infection, Influenza A Patient Disposition: Home, Self-Care Instructions: Influenza (ED) Prescriptions: No Action sulfacetamide sodium 10 % drops 2 drp ophthalmic (eye) Q4H 5 Days Qty: 15 0RF Referrals: Naida Lilly NP [Primary Care Provider] - Kris Hirsch MD [Physician] - Stand Alone Forms: Work/School Release Print Language: Romansh
[2024-04-14 08:15] VITALS: BP 149/105; PULSE 96; RESP 20; TEMP 36.4; O2SAT 99
== END 2024-04-14 08:16 | disposition home or self-care (01) ==
PROVIDERS: Emergency Provider Emergency Medicine; PCP Nurse Practitioner Family
DX: J10.1 Influenza due to other identified influenza virus with other respiratory manifestations (principal); J06.9 Acute upper respiratory infection, unspecified; R06.02 Shortness of breath; R05.9 Cough, unspecified; Z03.818 Encounter for observation for suspected exposure to other biological agents ruled out
CPT/HCPCS: 0241U; 71046; 80053; 85025; 99282; 99284

== ENCOUNTER → 2024-04-14 07:08 | Outpatient (BNV) | payer OTHER, SELFPAY | PROVIDERS: Emergency Provider Emergency Medicine; PCP Nurse Practitioner Family; Visit Provider Radiology Vascular & Interventional Radiology | DX: R05.9 Cough, unspecified (principal) | CPT/HCPCS: 71046 ==

== ENCOUNTER 2025-03-18 16:19 | Emergency (ER) | payer OTHER, SELFPAY ==
--- OUTSIDE RECORDS SUMMARY | 2023-12-24 07:00 | XMS_ITS ---
[facility] Address [address] [place] [address] Care Team Providers Care Recreation Professor Name Role Phone Naida Lilly Primary Care Provider Unavaila Venus Elliott Unavailable [phone] Huang Mullen Unavailable [phone] REASON FOR VISIT Foot pain Encounters Encounter Location Date Provider [facility] [address] [address] 12/24/2023 Huang Mullen Pain in left foot M79.672 ; Pain in left ankle and joints of left foot M25.572 ; Bursitis of left foot M77.52 and 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 Assessments Encounter Date Diagnosis (ICD Code) Assessment Notes Treatment Notes Treatment Clinical Notes Section Notes 12/24/2023 Pain in left foot (ICD-10 - M79.672) 12/24/2023 Pain in left ankle and joints of left foot (ICD-10 - M25.572) 12/24/2023 Bursitis of left foot (ICD-10 - M77.52) 12/24/2023 Osteoarthritis of midtarsal joint of left foot (ICD-10 - M19.072) Plan Of Treatment Next Appt Details Follow Up: prn, Reason: Progress Notes * Kranthi KRAMERDOB:[birth year] (54 yo M)Acc No.[id number]:12/24/2023 Progress Note Patient: Kranthi BURKETT Provider: Riki Shore DPM :1970 A ge:53 Y S ex:Male Date:12/24/2023 [address] [id number] Pcp:Naida Lilly Subjective: * Chief Complaints: * 1 . Foot pain. * HPI: F oot Pain: Nature: a sampson, stiffness, swelling, throbbing. Location: T op, Inside, Midfoot, LEFT. Duration: s everal weeks, since the end of August. Course: w amparo. Treatments: r est/alter normal daily activity , medication ( Tylenol, Advil, Motrin). * ROS: G eneral/Constitutional: Nausea d enies. V omiting d enies. H mattie Thirst d enies. L oss appetite d enies. C hills d enies. F atigue d enies.?Fever d enies. N ight Sweats d enies. U nexplained weight loss d enies. U nexplained weight gain d enies. H EENTM: Dentures d enies. D izziness d enies. G lasses/contacts d enies. R etinopathy d enies. B lurred/double vision d enies. T MJ?denies. D ischarge/drainage d enies. I mplants d enies. S ore throat d enies. D ental implants d enies. H gregory of hearing d enies. D ifficulty chewing/swallowing/speaking d enies. N ose bleeds d enies. S ore mouth d enies. ? R espiratory: On Oxygen d enies. P neumonia/pleurisy d enies.?Bronchitis d enies. E mphysema d enies. C oughing d enies. C ough blood?denies. S hortness of breath d enies. W heezing d enies. C ardiovascular: Pacemaker d enies. M DEWATERING FILTERING SUPERVISOR d enies. W PW d enies. C HF d enies. H eart attack d enies. S eptal defect d enies. R apid beat d enies. C hest pain d enies. A trial Fib. d enies. M urmur/Palpitations d enies. G astrointestinal: Hemorrhoids d enies. S tomach/Abdominal pain d enies. D ark blood stool d enies. I rritable bowel d enies. C onstipation d enies. D iarrhea d enies. H ematology: Swelling d enies. C lots d enies. V aricose Veins d enies. B ruising d enies. B leeding problem d enies. G enitourinary: Blood urine d enies. F requent/Painfu/urination/bladder control d enies. K idney stones d enies. I nfection (UTI) d enies. N ephropathy d enies. s ex trans dis (STD) d enies. P rostate d enies. M usculoskeletal: Hammertoes d enies. B unions d enies. B ack Pain d enies. M uscle Cramps/ Resting d enies. M uscle cramps / walking d enies.?Generalized aches and pains d enies. W eakness d enies. I nteg.: Greene d enies. S cars d enies. C orns/calluses?denies. I ngrown nails a dmits. P ainful nails d enies. O pen Sores d enies. R ashes d enies. N eurologic: Difficulty sleeping d enies. B rain disorder d enies. N umbness d enies. B alance trouble d enies. C onfusion d enies. F ainting/blackouts d enies. T ingling d enies. T remors d enies. * Medical History: Objective: * Vitals: * Examination: O rthopedic: MUSCLE STRENGTH: 5 /5 all groups in a symmetrical fashion , B/L. FOOT MORPHOLOGY: P es Cavus structure, Prominent, painful 1st Met-Cuneiform joint without inflammation, LEFT. X -Rays - IMAGING REPORT: Clinical Indication(s): Evaluate for Fracture, Evaluate Biomechanical Deformity. Views: 3 views of Foot, AP, LAT, LO, LEFT. Findings: n ormal bone and soft tissue density consistent for patients age and sex, eburnation dorsal 1st MT/Cun. jt, dorsal degenerative changes of the tarsal joints. Fracture: N egative fractures identified. ? N eurological: SENSORY: N eurological exam reveals intact sensorium, pain sensation normal, vibration sensation intact, pinprick sensation is normal in the lower extremities, Pt denies, anesthesia, burning, paresthesia, tingling, B/L. TINEL'S COMPRESSION: Negative, Medial dorsal cutaneous nerve distribution, Intermediate dorsal cutaneous nerve distribution, Deep peroneal nerve distribution, Left. DEEP TENDON REFLEXES: A chilles, 2/4, B/L. 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 ORIENTED: p erson, place, and time. V ascular: DP PULSES (B): 3 /4, B/L. PT PULSES (B): 3 /4, B/L. CAPILLARY FILL TIME: i mmediate, all digits, B/L. TROPHIC CONDITION-TEXTURE/ELASTICITY/TURGOR/HAIR GROWTH (B):?normal, B/L. TEMPERTURE GRADIENT (C): w arm to cool, proximal to distal, B/L. PIGMENTATION: n ormal, B/L. EDEMA (C): a bsent, B/L. D ermatologic: SKIN FINDINGS: S kin exam reveals normal texture, elasticity, and turgor. There are no masses. The interspaces are clear. Assessment: * Assessment: 1. P ain in left foot - M79.672 (Primary) 2 . P ain in left ankle and joints of left foot - M25.572 3 . B ursitis of left foot - M77.52 4 .?Osteoarthritis of midtarsal joint of left foot - M19.072 S pecify :Dx New problem, Prognosis Uncertain (4),Acute problem, Complicated w/ Multiple Tx Options(4) Plan: * Treatment: * Procedure Codes: 7 3630 X-RAY EXAM OF LEFT FOOT 3V, Modifiers: 26 , LT * Follow Up: p rn * Images: * The named appointment provid er may or may not be the originator of this progress note, and it is not deemed complete until electronically signed by the appointment provider. Sign off status: Pending * Provider: Riki Shore DPM Date: 0 12/24/2023 Generated for Candie patel/Caity/Rishi on: 05/19/2024 07:49 PM EST History and Physical Notes * HPI (History of Present Illness) Category Sub-Category Detail Notes Category Not es Foot Pain Nature: aching, stiffness, swelling, throbbing Location: Top, Inside, Midfoot , LEFT Duration: several weeks, since the end of August Course: worse Treatments: rest/alter normal da ubaldo activity , medication ( Tylenol, Advil, Motrin) Examination Category Sub-Category Detail Notes Category Not es Neurological SENSORY: Neurological exa m reveals intact sensorium, pain sensation normal, vibration sensation intact, pinprick sensation is normal in the lower extremities, Pt denies, anesthesia, burning, paresthesia, tingling, B/L TINEL'S COMPRESSION: Negative, Medial do rsal cutaneous nerve distribution, Intermediate dorsal cutaneous nerve distribution, Deep peroneal nerve distribution, Left DEEP TENDON REFLEXES: Achilles, 2/4, B/L Dermatologic SKIN FINDINGS: Skin exam reveal s normal texture, elasticity, and turgor. There are no masses. 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 jt, dorsal degenerative changes of the tarsal joints Fracture: Negative fractures i dentified Views: 3 views of Foot, AP, LAT, LO, LEFT Clinical Indication(s): Evaluate for Fra cture, Evaluate Biomechanical Deformity
--- NOTE | 2025-03-18 16:34 | ED.ALLEREA ---
HPI - Allergic Reaction General Chief complaint: Allergic Reaction Stated complaint: Allergic RXN nuts EPI given, SOB swollen & itchy Time Seen by Provider: 03/18/25 16:32 Source: patient and EMS Mode of arrival: EMS Limitations: no limitations History of Present Illness ED Provider: DR. Davis HPI narrative: A 54-year-old male brought in by ambulance for evaluation of allergic reaction versus angioedema. Patient started to have rash and itching with lip swelling and tongue swelling with difficulty breathing after eating a mixed nuts at a restaurant, patient drove himself to the fire station where they give him epinephrine subcu and transported him to the hospital. On arrival patient is still have some tongue swelling, improvement of the shortness of breath, no wheezing, Related Data Previous Rx's ?Medication ?Instructions ?Recorded sulfacetamide sodium 10 % eye drops 2 drp ophthalmic (eye) Q4H 5 days 05/21/23 #15 mL epinephrine 0.3 mg/0.3 mL 0.3 mg (0.3 mL) IM Q10M PRN 03/18/25 injection, auto-injector (EpiPen anaphylaxis #2 ea 2-Scooter) Allergies Allergy/AdvReac Type Severity Reaction Status Date / Time apple Allergy Swelling Verified 03/18/25 16:42 nut - unspecified Allergy Swelling Verified 03/18/25 16:42 Review of Systems Review of Systems: All other systems are reviewed and are negative Constitutional: Reports as per HPI and Reports no additional constitutional complaints Eyes: Reports as per HPI and Reports no additional eye complaints Reports system reviewed and no additional complaints, except as documented Cardiovascular: Reports as per HPI and Reports no additional cardiovascular complaints Respiratory: Reports as per HPI and Reports no additional respiratory complaints Gastrointestinal: Reports as per HPI and Reports no additional gastrointestinal complaints Genitourinary: Reports no additional female genitourinary complaints Musculoskeletal: Reports no additional musculoskeletal complaints Skin/Breast: Reports system reviewed and no additional complaints, except as docu Psychiatric: Reports no additional psychiatric complaints Endocrine: Reports no additional endocrine complaints Hematologic/Lymphatic: Reports no additional hematologic/lymphatic complaints Allergic/Immunologic: Reports no additional allergic/immunologic complaints Reports system reviewed and no additional complaints, except as documented and Reports Abnormal speech present PMFSH Social History Social History Alcohol intake: current Alcohol intake frequency: a few times a week Patient Tobacco Use Status: Never used Tobacco Physical Exam ED Vital Signs: Vital signs have been reviewed and appear to be correct. Blood pressure elevated. Heart rate normal. Respiratory rate normal. Temperature normal. Oxygen saturation normal. Appearance: Alert. Oriented X3. No acute distress. Head: Normal external exam. Normocephalic. Atraumatic. No Hamilton signs noted. No raccoon eyes noted Eyes: PERRLA. EOMI. Conjunctiva and sclera normal. Eyelids normal. ENT: TM's Normal. Pharynx normal. Uvula midline. Moist mucous membranes. Patent airway, No trismus noted. No drooling noted. No muffled voice noted. No stridor. Neck: Normal inspection. Neck supple. FROM. No adenopathy. Thyroid Normal. No meningeal signs. No neck mass noted. CVS: Normal heart rate and rhythm. Heart sound normal. No murmurs noted. Pulses normal throughout. Respiratory: No respiratory distress. Painless inspiration. Breath sounds normal. No wheezes/rales/rhonchi noted. Chest nontender. No accessory muscle usage noted or decreased air movement noted. Abdomen: Soft and nontender. Bowel sounds normal in all 4 quadrants. No distention noted. No organomegaly noted. No visible injury noted. Back: No CVA tenderness. Full range of motion noted. Skin: Skin warm and dry. Normal skin color. Normal skin turgor. No rashes/lesions/lacerations noted. Extremities: No lower extremity edema. Extremities exhibit normal range of motion. Extremities nontender. Neuro: Oriented X 3. Cranial nerve exam: II-XII are grossly intact No motor deficit. No sensory deficit. Reflexes normal. Course Reevaluation(s) Reevaluation #1: 54-year-old male came in after had allergic reaction after eating not, patient was observed in the ED for 2 hours initially received EpiPen by fire department then transported to the hospital in the ED patient got a L of LR and Benadryl, Pepcid, and Solu-Medrol. Patient was instructed to follow-up with his rotary drum dyer for further evaluation. Time: 19:00 Medical Decision Making Differential Diagnosis Differential Diagnoses: The differential diagnosis associated with the presentation includes (Anaphylaxis, angioedema, compromise airway.) Admission/Observation Consideration of admission/observation: Escalation of care including admission/observation considered Discharge Plan Discharge Clinical Impression: Allergic reaction Patient Disposition: Home, Self-Care Instructions: General Allergic Reaction (ED) Additional Instructions: Follow-up with your rotary drum dyer and until further testing refrain from eating nuts. As we discussed keep your EpiPen a new pocket at all times. Prescriptions: New epinephrine [EpiPen 2-Scooter] 0.3 mg/0.3 mL auto-injector 0.3 mg IM Q10M PRN (Reason: anaphylaxis) Qty: 2 0RF Rx Instructions: for 2 doses No Action sulfacetamide sodium 10 % drops 2 drp ophthalmic (eye) Q4H 5 Days Qty: 15 0RF Print Language: Armenian
[2025-03-18 16:39] VITALS: BP 174/109; BP 180/100; PULSE 109; PULSE 110; RESP 21; TEMP 36.7; O2SAT 100; O2SAT 91; BMI 31.0
[2025-03-18] MEDS: Lactated Ringers 1,000 ML 999 ML IV (16:45)
--- NOTE | 2025-03-18 16:46 | PC.NURSE ---
Patient presented to the Ed via EMS from home after eating an apple and a handful of mixed nuts. Patient started to experience facial/tongue swelling with generalized itching. Noted to have generalized redness and swelling of face and tongue. Patient maintaining airway. Hypertensive on admit 163/109 on admit. Iv established and meds given per MAY. Patient placed on monitor.
[2025-03-18 17:30] VITALS: BP 163/109; PULSE 108; RESP 22; TEMP 36.7; O2SAT 97
--- NOTE | 2025-03-18 17:43 | PC.NURSE ---
Patient wanting to leave ED prior to medication being completed, despite education.Provider OK with patient discharge. Noted to have less facial swelling and redness prior to discharge. VSS. IV removed.
[2025-03-18 17:45] VITALS: BP 163/109; PULSE 108; RESP 22; TEMP 36.7; O2SAT 97
--- OUTSIDE RECORDS SUMMARY | 2025-03-18 19:50 | XMS_ITS | Patient Health Record ---
Author Organization [facility] Address [address] [place] [address] Care Team Providers Care Bundles Hanger Name Role Phone Naida Lilly Primary Care Provider Unavaila Venus Elliott Unavailable [phone] Allergies No Known Allergies Reason For Referral No Information Medications Medication SIG (Take, Route, Frequency, Duration) Notes Start Date End Date Status Atorvastatin Calcium 20 MG 1 tablet Oral ly Once a day; Duration: 30 day(s) Not-Taking Cephalexin 500 MG 1 capsule Orally brenda ry 6 hrs; Duration: 5 day(s) Not-Taking Acetaminophen 500 MG TAKE ONE TABLET BY MOUTH THREE TIMES A DAY Oral; Duration: 30 Not-Takin g Allopurinol 100 MG 1 tablet Orally Once a day; Duration: 30 day(s) Active Immunizations Vaccine Route Administration Date Status Comme nts COVID-19 Kyle & Kyle/Regine Unknown 02/02/2022 R efused Social History Tobacco [...] Osteoarthritis of midtarsal joint of left foot ([id number] ) Osteoarthritis of midtarsal joint of left foot (M19.072) Active confirmed Plan Of Treatment Pending Test Test Name Order Date MRI : Ankle, right 11/05/2017 *Uric Acid, Serum 05/12/2012 *Uric Acid, Serum 11/08/2017 *Sedimentation Rate-Westergren 8 *Sedimentation Rate-Westergren 3 X ray : Foot, left 3V 03/03/2012 X ray : Foot, left 3V 10/30/2023 X ray : Foot, right 3V 12/24/2023 [id number] I&D ABSCESS- SIMPLE,SINGLE 022 Insurance Providers Payer Name Payer Address Payer Phone Subscriber Number Group Number Insured Name Patient Relationship to Insured Coverage Start Date Coverage End Date [facility] [address] [place] [address] [id number] Carrol Schilling Spouse - patient is the spouse of [...]
--- OUTSIDE RECORDS SUMMARY | 2025-03-18 19:50 | XMS_ITS | Clinical Summary ---
Author Organization [facility] Address [address] [place] [address] Phone Care Team Providers Care International Representative Name Role Phone Naida Lilly NP Primary Care Provider Encounters Date Type Department Care Team Description 01/01/2025 Transcribe Orders [facility] [address], [address] [place] [address] Naida Lilly, SABA Thrush (Primary Dx) from Last 3 Months Social History Tobacco Use Types Packs/Day Years Used Date Smoking Tobacco: Never Assessed Sex and Gender Information Value Date Recorded Sex Assigned at Male 12/25/2024 10:44 AM EDT Legal Sex Male 10:37 AM EDT Gender Identity Male 12/25/2024 10:44 AM EDT Sexual Orientation Straight 12/25/2024 10 :44 AM EDT Plan of Treatment Not on file Medical Devices Not on file Insurance [facility] Care Teams International Representative Relationship Specialty Start Date End Date Naida Lilly NP [address] [place] [address] PCP - General Nurse Practitioner 12/25/24 Additional Source Comments The information contained in this document represents components of the legal health record. It is not the complete legal health record.[facility]
== END 2025-03-18 17:45 | disposition home or self-care (01) ==
PROVIDERS: Emergency Provider Emergency Medicine; PCP Internal Medicine
DX: R06.02 Shortness of breath (principal); T78.19XA Other adverse food reactions, not elsewhere classified, initial encounter; X58.XXXA Exposure to other specified factors, initial encounter
CPT/HCPCS: 96361; 96374; 96375; 99283; 99284; J1308; J2919; J7120